=== PATIENT | male | born 1970 | race Caucasian/White ===

== ENCOUNTER 2019-12-30 19:31 | Emergency (ER) | payer OTHER ==
[~2019-12-30] VITALS: Ht 165.1 cm; Wt 87.0 kg
[2019-12-30 21:33] VITALS: BP 145/75
== END 2019-12-30 21:34 | disposition home or self-care (01) ==
LOC: ER 19:32
DX: T16.1XXA Foreign body in right ear, initial encounter (principal); T16.2XXA Foreign body in left ear, initial encounter; X58.XXXA Exposure to other specified factors, initial encounter; Y93.89 Activity, other specified; Y92.89 Other specified places as the place of occurrence of the external cause; Y99.8 Other external cause status
CPT/HCPCS: 99281; 99284

== ENCOUNTER 2023-10-08 19:05 | Emergency (ER) | payer OTHER ==
[~2023-10-08] VITALS: Ht 167.6 cm; Wt 84.1 kg
[2023-10-08 19:21] VITALS: BP 145/97; PULSE 79; RESP 14; TEMP 98.1; O2SAT 99
== END 2023-10-08 22:24 | disposition left against medical advice (07) ==
LOC: ER 19:05
DX: S83.91XA Sprain of unspecified site of right knee, initial encounter (principal); X58.XXXA Exposure to other specified factors, initial encounter; Y93.89 Activity, other specified; Y92.89 Other specified places as the place of occurrence of the external cause; Y99.8 Other external cause status
CPT/HCPCS: 29530; 93971; 99284